=== PATIENT | male | born 1990 | race Caucasian/White ===

== ENCOUNTER 2020-10-27 00:52 | Emergency (ER) | payer OTHER ==
[2020-10-27 03:48] LABS: RED BLOOD COUNT 4.54 M/UL (4.20-5.50); WHITE BLOOD COUNT 7.1 K/UL (4.5-11.0)
[2020-10-27 04:13] LABS: BUN/CREATININE RATIO 14 (0-10)
== END 2020-10-27 05:25 | disposition home or self-care (01) ==
LOC: ER1 00:52
PROVIDERS: Family Medicine
DX: S50.02XA Contusion of left elbow, initial encounter (principal); S50.01XA Contusion of right elbow, initial encounter; V49.40XA Driver injured in collision with unspecified motor vehicles in traffic accident, initial encounter; Y92.410 Unspecified street and highway as the place of occurrence of the external cause; Z23 Encounter for immunization
CPT/HCPCS: 70450; 71046; 72125; 80053; 85025; 85610; 90471; 90715; 94640; 94664; 99284; G0480; J0696; J1100; J2060